=== PATIENT | female | born 2000 | race Caucasian/White ===

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

== ENCOUNTER 2019-09-28 04:55 | Emergency (ER) | payer MEDICAID, OTHER ==
[~2019-09-28] VITALS: Ht 157.5 cm; Wt 81.8 kg
[2019-09-28] MEDS ORDERED: ACETAMINOPHEN 325 MG TABLET PO ONE (05:30)
[2019-09-28] MEDS ORDERED: IBUPROFEN 400 MG TABLET PO ONE (06:00)
[2019-09-28] MEDS ORDERED: DEXAMETHASONE SOD PHOS 4 MG/ML 5 ML VIAL IM ONE (06:15)
[2019-09-28] MEDS ORDERED: PENICILLIN G BENZATHINE LA 1,200,000 UNITS/2 ML SYRINGE IM ONE (07:00)
[2019-09-28 07:15] VITALS: BP 118/88
== END 2019-09-28 07:23 | disposition home or self-care (01) ==
LOC: EMS 04:55
DX: J02.0 Streptococcal pharyngitis (principal)
CPT/HCPCS: 87430; 96372; 99284; J0561; J1100